=== PATIENT | female | born 1955 | race Caucasian/White ===

== ENCOUNTER 2018-09-14 11:57 | Emergency (ER) | payer BC ==
[~2018-09-14] VITALS: Ht 162.6 cm; Wt 67.3 kg
[2018-09-14] MEDS ORDERED: NORVASC 10MG10 MG PO (13:32)
[2018-09-14] MEDS ORDERED: MULTIVITAMIN1 SGL PO (13:35)
[2018-09-14] MEDS ORDERED: SYNTHROID25 MCG (13:35)
[2018-09-14 13:42] LABS: HEMATOCRIT 43.6 % (37.0-47.0); MEAN CELL VOLUME 90 fl (78-100); MEAN CORPUSCULAR HEMOGLOBIN 29 pg (27-31); MEAN CORPUSCULAR HGB CONC 32 g/dL (33-37); MEAN PLATELET VOLUME 9.5 fl (7.4-10.4); PLATELET COUNT 287 K/mm3 (130-400); RED BLOOD COUNT 4.87 M/mm3 (4.10-5.30); RED CELL DISTRIBUTION WIDTH 13.2 % (11.5-14.5)
[2018-09-14 13:54] LABS: ALBUMIN 4.3 g/dL (3.5-5.0); CALCIUM 9.2 mg/dL (8.4-10.2); POTASSIUM 3.8 mmol/L (3.6-5.0); TOTAL BILIRUBIN 0.9 mg/dL (0.2-1.3); TOTAL PROTEIN 7.4 g/dL (6.3-8.2)
[2018-09-14 14:04] LABS: LYMPHOCYTE 4 % (20-51); NEUTROPHILS 94 % (42-75)
[2018-09-14 14:05] LABS: MONOCYTE 2 % (3-10)
[2018-09-14 15:03] VITALS: BP 106/84
== END 2018-09-14 15:02 | disposition home or self-care (01) ==
LOC: ED 11:57
PROVIDERS: Nurse Practitioner Primary Care
DX: S01.81XA Laceration without foreign body of other part of head, initial encounter (principal); R55 Syncope and collapse; E03.9 Hypothyroidism, unspecified; I10 Essential (primary) hypertension